=== PATIENT | male | born 1950 | race Caucasian/White ===

== ENCOUNTER 2017-06-26 21:18 | Inpatient (IN) | payer OTHER, MEDICARE ==
[~2017-06-26] VITALS: Ht 165.1 cm; Wt 125.0 kg
[~2017-06-26 21:18] MED LIST: LORCET 5-325 M1 EACH PO; MOTRIN600 MG PO; NORVASC5 MG PO; VENTOLIN HFA18 GM IH
[2017-06-27 07:53] VITALS: BP 146/70
[2017-06-27 13:36] LABS: HEMATOCRIT 31.7 % (38.0-50.0); MCH 28.9 PG (29.0-34.0); MCHC 31.9 G/DL (30.0-36.0); MCV 90.8 FL (86-99); MEAN PLAT.VOLUME 9.5 uM^3 (9.0-12.4); PLATELET COUNT 233 K/uL (156-360); RBC DIS.WIDTH-CV 13.8 % (11.8-14.6); RBC DIS.WIDTH-SD 45.5 % (39-53); RED BLOOD COUNT 3.49 M/uL (4.00-5.50)
[2017-06-27 15:35] VITALS: BP 132/74
[2017-06-27 19:54] VITALS: BP 123/65
[2017-06-27 23:51] VITALS: BP 128/62
[2017-06-28 03:57] VITALS: BP 120/66
[2017-06-28 07:33] LABS: HEMATOCRIT 30.9 % (38.0-50.0); MCV 89.6 FL (86-99)
[2017-06-28 07:54] VITALS: BP 142/63
[2017-06-28 07:56] LABS: ANION GAP 6 MEQ/L (2-14); CHLORIDE 104 MEQ/L (99-109); GFR ESTIMATE (CALCULATED) > 59 mL/min/; GLUCOSE 112 mg/dL (70-99); POTASSIUM 3.7 MEQ/L (3.7-5.4); SAMPLE HEMOLYSIS CHECK 0; SAMPLE ICTERIC CHECK 0; SAMPLE LIPEMIA CHECK 0; SODIUM 137 MEQ/L (136-147); UREA NITROGEN (BUN) 16 mg/dL (9-23)
[2017-06-28 11:46] VITALS: BP 130/69
[2017-06-28 15:33] VITALS: BP 119/61
[2017-06-28 20:06] VITALS: BP 105/58
[2017-06-29 00:08] VITALS: BP 110/56
[2017-06-29 03:22] VITALS: BP 117/56
[2017-06-29 05:21] LABS: HEMATOCRIT 29.7 % (38.0-50.0); MCV 89.2 FL (86-99)
[2017-06-29 08:00] VITALS: BP 113/56
[2017-06-29] MEDS ORDERED: OXYCONTIN10 MG PO (09:00)
[2017-06-29] MEDS ORDERED: ENDOCET 5-3251 EACH PO (09:00)
[2017-06-29] MEDS ORDERED: LOVENOX40 MG/0.4 SC (09:00)
== END 2017-06-29 15:10 | DRG 467 ==
LOC: ENRESERV 21:18 → 3WEST 06-27 06:46 → 2SOUTH 06-27 06:46 → 3WEST 06-27 15:15
PROVIDERS: Orthopaedic Surgery
DX: T84.032A Mechanical loosening of internal right knee prosthetic joint, initial encounter (principal); T84.062A Wear of articular bearing surface of internal prosthetic right knee joint, initial encounter; Y83.1 Surgical operation with implant of artificial internal device as the cause of abnormal reaction of the patient, or of later complication, without mention of misadventure at the time of the procedure; I10 Essential (primary) hypertension; E66.01 Morbid (severe) obesity due to excess calories; Z87.891 Personal history of nicotine dependence; Z68.41 Body mass index [BMI] 40.0-44.9, adult; Z98.84 Bariatric surgery status
CPT/HCPCS: 73560; 80048; 85014; 85018; 85027; 99202; C1713; C1776; J0131; J0690; J1170; J1650; J2250; J3010; J7050